=== PATIENT | male | born 1995 | race Caucasian/White ===

== ENCOUNTER 2018-02-23 15:26 | Emergency (ER) | payer OTHER, SELFPAY ==
[2018-02-23] MEDS ORDERED: MORPHINE 4 MG/ML SYR ONE (15:45)
[2018-02-23] MEDS ORDERED: ONDANSETRON 4 MG/2 ML VIAL ONE (15:45)
[2018-02-23] MEDS ORDERED: NA CHLORIDE 0.9% 1,000 ML ONE ×2 (15:57→17:16)
[2018-02-23] MEDS ORDERED: TETANUS & DIPHTHERIA TOX,ADULT 0.5 ML VIAL ONE ×2 (15:57→15:58)
[2018-02-23] MEDS ORDERED: HYDROCODONE/APAP 10/325 TAB ONE (16:10)
[2018-02-23] MEDS ORDERED: CEFAZOLIN/SWI 1gm 1 GM/10 ML SYR IVP ONE (16:15)
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
== END 2018-02-23 18:15 | disposition home or self-care (01) ==
LOC: ER 15:26
DX: T23.292A Burn of second degree of multiple sites of left wrist and hand, initial encounter (principal); X03.0XXA Exposure to flames in controlled fire, not in building or structure, initial encounter; Y93.89 Activity, other specified; Y92.9 Unspecified place or not applicable; Z23 Encounter for immunization; F17.210 Nicotine dependence, cigarettes, uncomplicated
CPT/HCPCS: 90714; 96361; 96365; 96375; 99284; J0690; J2405; J7030

== ENCOUNTER 2021-12-20 15:21 | Emergency (ER) | payer SELFPAY ==
--- NOTE | 2021-12-20 15:52 | EDPHYS ---
Physician Documentation [facility] Name: Inder Duckworth Age: 26 yrs Sex: Male : 1995 Arrival Date: 12/20/2021 Time: 15:23 Bed Waiting Private MD: ED Physician Kortney Grimaldo HPI: 12/20 15:44 This 26 yrs old Male presents to ER via Ambulatory with complaints of Toothache. jmm 15:44 The patient presents with pain. Onset: The symptoms/episode began/occurred gradually. jmm Duration: The symptoms are continuous. Modifying factors: The symptoms are alleviated by nothing, the symptoms are aggravated by nothing. Associated signs and symptoms: Pertinent negatives: fever. It is unknown whether or not the patient has had similar symptoms in the past. Historical: - Allergies: 15:44 No Known Allergies; ap3 - Home Meds: 15:44 None [Active]; ap3 - PMHx: 15:44 None; ap3 - Immunization history:: Client reports having NOT received the Covid vaccine. - Social history:: Smoking status: Reported history of juuling and/or vaping. Patient uses street drugs, marijuana. ROS: 15:44 Constitutional: Negative for fever, chills, and weight loss. jmm 15:44 ENT: Positive for dental pain. 15:44 All other systems are negative. Exam: 15:44 Constitutional: This is a well developed, well nourished patient who is awake, alert, jmm and in no acute distress. Head/Face: atraumatic. Eyes: EOMI, no conjunctival erythema appreciated 15:44 Chest/axilla: Normal chest wall appearance and motion. Cardiovascular: Regular rate and rhythm. No edema appreciated Respiratory: Normal respirations, no respiratory distress appreciated Abdomen/GI: Non distended Back: Normal ROM Skin: General appearance color normal MS/ Extremity: Moves all extremities, no obvious deformities appreciated, no edema noted to the lower extremities Neuro: Awake and alert Psych: Behavior is normal, Mood is normal, Patient is cooperative and pleasant 15:44 ENT: Dental exam: dental caries, that is severe, diffusely, gum swelling, that is moderate, specifically in the lower right second bicuspid (#29), lower right first molar (#30) and lower right second molar (#31), pain, that is moderate, specifically in the lower right first molar (#30), lower right second molar (#31) and lower right third molar (#32). Vital Signs: 15:42 BP 122 / 66; Pulse 51; Resp 18; Temp 97.5; Pulse Ox 100% ; Weight 83.91 kg; Height 6 ap3 ft. 4 in. (193.04 cm); Pain 8/10; 15:42 Body Mass Index 22.52 (83.91 kg, 193.04 cm) ap3 MDM: 15:44 Patient medically screened. [facility] 15:48 Data reviewed: vital signs, nurses notes. Counseling: I had a detailed discussion with [facility] the patient and/or guardian regarding: the historical points, exam findings, and any diagnostic results supporting the discharge/admit diagnosis, the need for outpatient follow up, to return to the emergency department if symptoms worsen or persist or if there are any questions or concerns that arise at home. Administered Medications: 16:10 Drug: Ketorolac 30 mg Route: IM; Site: right deltoid; ap3 16:11 Follow up: Response: Medication administered at discharge. ap3 16:10 Drug: Amoxicillin 875 mg Route: PO; ap3 16:11 Follow up: Response: Medication administered at discharge. ap3 Disposition: 18:31 STAFF ATTESTATION STATEMENT I was immediately available on-site in the Emergency sd2 Department for consultation in the care of the patient. Kortney Grimaldo MD. Disposition Summary: 12/20/21 15:52 Discharge Ordered Location: Home [facility] Condition: Stable [facility] Diagnosis - Dental caries, unspecified [facility] Followup: [facility] - With: Iain Cadena DDS - When: 2 - 3 days - Reason: Recheck today's complaints, Continuance of care, Re-evaluation by your physician Discharge Instructions: - Discharge Summary Sheet [facility] - Dental Caries, Adult [facility] Forms: - Medication Reconciliation Form [facility] - Thank You Letter [facility] - Antibiotic Education [facility] - Prescription Opioid Use [facility] Prescriptions: - Amoxicillin 875 mg Oral Tablet - take 1 tablet by ORAL route every 12 hours for 10 days; 20 tablet; Refills: 0, [facility] Product Selection Permitted - Diclofenac Sodium 75 mg Oral Tablet Sustained Release - take 1 tablet by ORAL route 2 times per day; 30 tablet; Refills: 0, Product jmm Selection Permitted Signatures: Jefferson Reid PA PA jmm Prokisch, Amanda, GIL RN ap3 Kortney Grimaldo MD MD sd2
--- NOTE | 2021-12-20 15:52 | ER ---
Nurse's Notes [facility] Name: Inder Duckworth Age: 26 yrs Sex: Male : 1995 Arrival Date: 12/20/2021 Time: 15:23 Bed Waiting Private MD: Diagnosis: Dental caries, unspecified Presentation: 12/20 15:42 Chief complaint: Patient states: he has been having right lower tooth pain for approx ap3 one week. patient states the pain is is a 8/10 on the pain scale. Coronavirus screen: At this time, the client does not indicate any symptoms associated with coronavirus-19. Ebola Screen: No symptoms or risks identified at this time. Initial Sepsis Screen: Does the patient meet any 2 criteria? No. Patient's initial sepsis screen is negative. Does the patient have a suspected source of infection? No. Patient's initial sepsis screen is negative. Risk Assessment: Do you want to hurt yourself or someone else? Patient reports no desire to harm self or others. Onset of symptoms was December 13, 2021. 15:42 Method Of Arrival: Ambulatory ap3 15:42 Acuity: ЕКАТЕРИНА 4 ap3 Triage Assessment: 15:45 General: Appears uncomfortable, Behavior is calm, cooperative, appropriate for age. ap3 Pain: Complains of pain in lower right second molar and lower right third molar. EENT: Reports pain in right jaw. Neuro: Level of Consciousness is awake, alert, obeys commands, Oriented to person, place, time, situation, Speech is normal. Cardiovascular: Patient's skin is warm and dry. Respiratory: Airway is patent Respiratory effort is even, unlabored, Respiratory pattern is regular, symmetrical. Historical: - Allergies: 15:44 No Known Allergies; ap3 - Home Meds: 15:44 None [Active]; ap3 - PMHx: 15:44 None; ap3 - Immunization history:: Client reports having NOT received the Covid vaccine. - Social history:: Smoking status: Reported history of juuling and/or vaping. Patient uses street drugs, marijuana. Screenin:46 Abuse screen: Denies threats or abuse. Nutritional screening: No deficits noted. ap3 Tuberculosis screening: No symptoms or risk factors identified. 16:11 Fall Risk None identified. ap3 Vital Signs: 15:42 BP 122 / 66; Pulse 51; Resp 18; Temp 97.5; Pulse Ox 100% ; Weight 83.91 kg; Height 6 ap3 ft. 4 in. (193.04 cm); Pain 8/10; 15:42 Body Mass Index 22.52 (83.91 kg, 193.04 cm) ap3 ED Course: 15:23 Patient arrived in ED. mr 15:40 [facility] Reid [facility] macy 15:40 Kortney Grimaldo is Attending Physician. jmm 15:44 Triage completed. ap3 15:46 Arm band placed on left wrist. ap3 15:52 Iain Cadena DDS is Referral Physician. jmm 16:10 Patient has correct armband on for positive identification. ap3 16:10 No provider procedures requiring assistance completed. Patient did not have IV access ap3 during this emergency room visit. Administered Medications: 16:10 Drug: Ketorolac 30 mg Route: IM; Site: right deltoid; ap3 16:11 Follow up: Response: Medication administered at discharge. ap3 16:10 Drug: Amoxicillin 875 mg Route: PO; ap3 16:11 Follow up: Response: Medication administered at discharge. ap3 Medication: 16:11 VIS not applicable for this client. ap3 Outcome: 15:52 Discharge ordered by MD. [facility] 16:10 Discharged to home ambulatory. ap3 16:10 Condition: stable 16:10 Discharge instructions given to patient, family, Instructed on discharge instructions, follow up and referral plans. medication usage, Demonstrated understanding of instructions, follow-up care, medications, Prescriptions given X 2. 16:11 Patient left the ED. ap3 Signatures: Jefferson Reid PA PA jmm Rivera, Mary mr Smith Kim, RN RN ap3
[2021-12-20] MEDS ORDERED: KETOROLAC 30 MG/ML INJ ONE (16:14)
[2021-12-20] MEDS ORDERED: AMOX/K CLAV 875 MG TAB ONE (16:14)
[2021-12-20 16:18] VITALS: BP 122/66; TEMP 97.5; O2SAT 100
== END 2021-12-20 16:11 | disposition home or self-care (01) ==
LOC: ER 15:21
DX: K02.9 Dental caries, unspecified (principal)
CPT/HCPCS: 96372; 99283

== ENCOUNTER 2022-02-08 09:39 | Emergency (ER) | payer SELFPAY ==
--- NOTE | 2022-02-08 10:57 | ER ---
Nurse's Notes [facility] Name: Inder Duckworth Age: 26 yrs Sex: Male : 1995 Arrival Date: 02/08/2022 Time: 09:45 Bed Waiting Private MD: Diagnosis: SARS-associated coronavirus as the cause of diseases classified elsewhere Presentation: 02/08 10:03 Chief complaint: Patient states: woke up with a headache and I was hot and cold, I took iw a home COVID test and it was positive. Coronavirus screen: Client presents with at least one sign or symptom that may indicate coronavirus-19. Ebola Screen: Patient negative for fever greater than or equal to 101.5 degrees Fahrenheit, and additional compatible Ebola Virus Disease symptoms Patient denies exposure to infectious person. Patient denies travel to an Ebola-affected area in the 21 days before illness onset. No symptoms or risks identified at this time. Initial Sepsis Screen: Does the patient meet any 2 criteria? No. Patient's initial sepsis screen is negative. Does the patient have a suspected source of infection? No. Patient's initial sepsis screen is negative. Risk Assessment: Do you want to hurt yourself or someone else? Patient reports no desire to harm self or others. Onset of symptoms was February 08, 2022. 10:03 Method Of Arrival: Ambulatory iw 10:03 Acuity: ЕКАТЕРИНА 4 iw Triage Assessment: 11:11 Pain: Also complains of no other associated symptoms. iw Historical: - Allergies: 10:04 No Known Allergies; iw - Home Meds: 10:04 None [Active]; iw - PMHx: 10:04 None; iw - PSHx: 10:04 None; iw - Immunization history:: Client reports having NOT received the Covid vaccine. - Social history:: Smoking status: Reported history of juuling and/or vaping. Screenin:49 Abuse screen: Denies threats or abuse. Denies injuries from another. Nutritional iw screening: No deficits noted. Tuberculosis screening: No symptoms or risk factors identified. Fall Risk None identified. Assessment: 10:49 General: Appears in no apparent distress. Behavior is calm, cooperative. Pain: Denies iw pain. Neuro: Level of Consciousness is awake, alert, obeys commands, Oriented to person, place, time, situation. Vital Signs: 10:04 BP 124 / 68; Pulse 70; Resp 16; Temp 98.1; Pulse Ox 98% ; Weight 83.91 kg; Height 6 ft. iw 3 in. (190.50 cm); 10:04 Body Mass Index 23.12 (83.91 kg, 190.50 cm) iw ED Course: 09:45 Patient arrived in ED. rg4 09:47 Quyen Mcconnell FNP-C is [facility]. kb 09:47 Montana Hager MD is Attending Physician. kb 10:04 Triage completed. iw 10:05 Arm band placed on. iw 10:49 Sharlene Hankins, RN is Primary Nurse. iw 11:10 No provider procedures requiring assistance completed. Patient did not have IV access iw during this emergency room visit. 11:11 Patient has correct armband on for positive identification. iw Administered Medications: No medications were administered Medication: 11:11 VIS not applicable for this client. iw Outcome: 10:56 Discharge ordered by . kb 11:11 Discharged to home ambulatory, with family. iw 11:11 Condition: good 11:11 Discharge instructions given to patient, Instructed on discharge instructions, follow up and referral plans. medication usage, Demonstrated understanding of instructions, follow-up care, medications, Prescriptions given X 1. 11:11 Patient left the ED. iw Signatures: Quyen Mcconnell FNP-C FNP-Sharlene Arzate, RN RN Kellie Saeed rg4
--- NOTE | 2022-02-08 10:57 | EDPHYS ---
Physician Documentation [facility] Name: Inder Duckworth Age: 26 yrs Sex: Male : 1995 Arrival Date: 02/08/2022 Time: 09:45 Bed Waiting Private MD: ED Physician Montana Hager HPI: 02/08 15:22 This 26 yrs old Male presents to ER via Ambulatory with complaints of Covid+, Headache. kb 15:22 The patient or guardian reports headahce, chills. Onset: The symptoms/episode kb began/occurred this morning. Severity of symptoms: At their worst the symptoms were mild, in the emergency department the symptoms have improved. Modifying factors: The symptoms are alleviated by nothing, the symptoms are aggravated by nothing. Associated signs and symptoms: The patient has no apparent associated signs or symptoms. The patient has not experienced similar symptoms in the past. The patient has not recently seen a physician. Pt reports waking up with chills and headache. Took a home covid test and it was positive. States he feels fine now, but family member made him come to the ER. Family member states they brought him in to get paxlovid. Historical: - Allergies: 10:04 No Known Allergies; iw - Home Meds: 10:04 None [Active]; iw - PMHx: 10:04 None; iw - PSHx: 10:04 None; iw - Immunization history:: Client reports having NOT received the Covid vaccine. - Social history:: Smoking status: Reported history of juuling and/or vaping. ROS: 15:22 Respiratory: Negative for shortness of breath, cough, wheezing, and pleuritic chest kb pain. 15:22 Constitutional: Positive for chills. 15:22 Neuro: Positive for headache. 15:22 All other systems are negative. Exam: 15:22 Constitutional: This is a well developed, well nourished patient who is awake, alert, kb and in no acute distress. Head/Face: Normocephalic, atraumatic. ENT: Moist Mucous membranes Cardiovascular: Regular rate and rhythm with a normal S1 and S2. No gallops, murmurs, or rubs. No pulse deficits. Respiratory: Respirations even and unlabored. No increased work of breathing. Talking in full sentences Abdomen/GI: Soft, non-tender. No distention Skin: Warm, dry with normal turgor. Normal color. MS/ Extremity: Pulses equal, no cyanosis. Neurovascular intact. Full, normal range of motion. Neuro: Awake and alert, GCS 15, oriented to person, place, time, and situation. Moves all extremities. Normal gait. Psych: Awake, alert, with orientation to person, place and time. Behavior, mood, and affect are within normal limits. Vital Signs: 10:04 BP 124 / 68; Pulse 70; Resp 16; Temp 98.1; Pulse Ox 98% ; Weight 83.91 kg; Height 6 ft. iw 3 in. (190.50 cm); 10:04 Body Mass Index 23.12 (83.91 kg, 190.50 cm) iw MDM: 10:05 Patient medically screened. kb 15:21 Data reviewed: vital signs, nurses notes. Data interpreted: Pulse oximetry: on room air kb is 98 %. Interpretation: normal. Counseling: I had a detailed discussion with the patient and/or guardian regarding: the historical points, exam findings, and any diagnostic results supporting the discharge/admit diagnosis, lab results, the need for outpatient follow up, a family practitioner, to return to the emergency department if symptoms worsen or persist or if there are any questions or concerns that arise at home. 02/08 10:06 Order name: COVID-19 SARS RT PCR (Document "Date of Onset" if Symptomatic); Complete kb Time: 10:56 Administered Medications: No medications were administered Disposition Summary: 02/08/22 10:56 Discharge Ordered Location: Home kb Condition: Stable kb Diagnosis - SARS-associated coronavirus as the cause of diseases classified elsewhere kb Followup: kb - With: Emergency Department - When: As needed - Reason: Worsening of condition Followup: kb - With: Private Physician - When: 2 - 3 days - Reason: Recheck today's complaints, Continuance of care, Re-evaluation by your physician Discharge Instructions: - Discharge Summary Sheet kb - COVID-19 kb - Viral Illness, Adult kb Forms: - Medication Reconciliation Form kb - Thank You Letter kb - Antibiotic Education kb - Prescription Opioid Use kb Prescriptions: - Paxlovid (EUA) 150 mg x 2- 100 mg Oral tablet - take 3 tablet by ORAL route 2 times per day for 5 days per package directions; kb 30 tablet; Refills: 0, Product Selection Permitted Signatures: Dispatcher [employer] Quyen Villela, PRINT LINE INSPECTOR-C PRINT LINE INSPECTOR-Sharlene Arzate, RN RN iw
[2022-02-08 11:19] VITALS: BP 124/68; TEMP 98.1; O2SAT 98
== END 2022-02-08 11:11 | disposition home or self-care (01) ==
LOC: ER 09:39
DX: U07.1 COVID-19 (principal)
CPT/HCPCS: 99282; U0003

== ENCOUNTER 2023-03-21 16:26 | Emergency (ER) | payer SELFPAY ==
[2023-03-21] MEDS ORDERED: IBUPROFEN 200 MG TAB PO ONE (17:06)
--- NOTE | 2023-03-21 17:39 | RAD REPORT ---
EXAM DESCRIPTION: RAD - Foot Left 3 View - 03/21/2023 5:16 pm CLINICAL HISTORY: Left Foot pain FINDINGS: No fracture or dislocation is seen.
--- NOTE | 2023-03-21 17:52 | EDPHYS ---
Physician Documentation [facility] [place], [place] Name: Inder Duckworth Age: 27 yrs Sex: Male : 1995 Arrival Date: 03/21/2023 Time: 16:26 Bed 20 Private MD: ED Physician Leon Koo HPI: 03/21 16:40 This 27 yrs old Male presents to ER via Wheelchair with complaints of Toe Injury - left.jh7 16:40 Onset: The symptoms/episode began/occurred acutely. Patient dropped a 20 pound jh7 electrical panel on the left foot bruising great toe. Reports that he cannot move his toe. No past medical history or allergies.. Historical: - Allergies: 16:46 Aspirin; cm10 - Home Meds: 16:46 None [Active]; cm10 - PMHx: 16:46 None; cm10 - PSHx: 16:46 None; cm10 - Immunization history:: Adult Immunizations unknown. - Social history:: Smoking status: Reported history of juuling and/or vaping. ROS: 16:40 Constitutional: Negative for fever, chills, and weight loss, Eyes: Negative for injury, jh7 pain, redness, and discharge, Cardiovascular: Negative for chest pain, palpitations, and edema, Respiratory: Negative for shortness of breath, cough, wheezing, and pleuritic chest pain, Abdomen/GI: Negative for abdominal pain, nausea, vomiting, diarrhea, and constipation, Skin: Negative for injury, rash, and discoloration, Neuro: Negative for headache, weakness, numbness, tingling, and seizure, 16:40 MS/extremity: Positive for ecchymosis, of the Left First distal metatarsal, 16:40 All other systems are negative, Exam: 16:40 Constitutional: This is a well developed, well nourished patient who is awake, alert, jh7 and in no acute distress. Head/Face: Normocephalic, atraumatic. Neck: Trachea midline, no thyromegaly or masses palpated, and no cervical lymphadenopathy. Supple, full range of motion without nuchal rigidity, or vertebral point tenderness. No Meningismus. Cardiovascular: Regular rate and rhythm with a normal S1 and S2. No gallops, murmurs, or rubs. Normal PMI, no JVD. No pulse deficits. Respiratory: Lungs have equal breath sounds bilaterally, clear to auscultation and percussion. No rales, rhonchi or wheezes noted. No increased work of breathing, no retractions or nasal flaring. Skin: Warm, dry with normal turgor. Normal color with no rashes, no lesions, and no evidence of cellulitis. Neuro: Awake and alert, GCS 15, oriented to person, place, time, and situation. Motor strength 5/5 in all extremities. Sensory grossly intact. Normal gait. 16:40 Musculoskeletal/extremity: Extremities: noted in the Left first distal metatarsal: ecchymosis, ROM: limited active range of motion, limited active range of motion due to pain, in the left first toe, Circulation is intact in all extremities. Sensation intact. Vital Signs: 16:44 BP 126 / 66; Pulse 61; Resp 18; Temp 98.7(TE); Pulse Ox 100% ; Weight 88.45 kg (R); cm10 Height 6 ft. 2 in. (R); Pain 6/10; 17:28 BP 119 / 82; Pulse 62; Resp 17 S; Pulse Ox 100% on R/A; kc6 16:44 Body Mass Index 25.04 (88.45 kg, 187.96 cm) cm10 16:44 Pain Scale: Adult cm10 MDM: 16:30 Patient medically screened. [facility] 17:55 Differential diagnosis: contusion, fracture, sprain. Data reviewed: vital signs, nurses [facility] notes, radiologic studies, plain films. I considered the following discharge prescriptions or medication management in the emergency department Medications were administered in the Emergency Department. See MAR. Independent interpretation of the following test(s) in the Emergency Department X-Ray: My interpretation is no acute fractures. Counseling: I had a detailed discussion with the patient and/or guardian regarding the historical points, exam findings, and any diagnostic results supporting the discharge/admit diagnosis, to return to the emergency department if symptoms worsen or persist or if there are any questions or concerns that arise at home. Response to treatment: the patient's symptoms have mildly improved after treatment. 03/21 16:34 Order name: XRAY Foot LEFT 3 View; Complete Time: 17:42 [facility] 03/21 17:43 Order name: Ortho shoe; Complete Time: 17:56 [facility] 03/21 17:50 Order name: Crutches; Complete Time: 18:05 [facility] Administered Medications: 17:01 Drug: Ibuprofen PO 600 mg PO once Route: PO; kc6 17:28 Follow up: Response: No adverse reaction kc6 Disposition Summary: 03/21/23 17:51 Discharge Ordered Notes: Location: Home [facility] Problem: new [facility] Symptoms: are unchanged [facility] Condition: Stable [facility] Diagnosis - Contusion of left foot [facility] Followup: [facility] - With: Private Physician - When: 2 - 3 days - Reason: Recheck today's complaints Discharge Instructions: - Discharge Summary Sheet [facility] - Foot Contusion [facility] - Crutch Use, Adult [facility] Forms: - Medication Reconciliation Form [facility] - Thank You Letter [facility] - Patient Portal Instructions [facility] - Leadership Thank You Letter [facility] Addendum: 03/22/2023 20:19 Co-signature as Attending Physician, Leon Koo MD. e c2 Signatures: Dispatcher [employer] Yoli Schmidt, IRONER OR PRESSER IRONER OR PRESSER 7 Taylor Mary RN RN kc6 Alesha Smith RN RN cm10 Leon Koo MD MD ec2
--- NOTE | 2023-03-21 17:52 | ER ---
Nurse's Notes [facility] Name: Inder Duckworth Age: 27 yrs Sex: Male : 1995 Arrival Date: 03/21/2023 Time: 16:26 Bed 20 Private MD: Diagnosis: Contusion of left foot Presentation: 03/21 16:44 Chief complaint: Patient states: he dropped an electrical panel on his left foot. Pt cm10 has pain to left great toe, bruising noted. Coronavirus screen: Vaccine status: Patient reports being unvaccinated. Client denies travel out of the [place] in the last 14 days. Ebola Screen: Patient denies travel to an Ebola-affected area in the 21 days before illness onset. No symptoms or risks identified at this time. Initial Sepsis Screen: Does the patient meet any 2 criteria? No. Patient's initial sepsis screen is negative. Does the patient have a suspected source of infection? No. Patient's initial sepsis screen is negative. Risk Assessment: Do you want to hurt yourself or someone else? Patient reports no desire to harm self or others. Onset of symptoms was March 21, 2023. 16:44 Method Of Arrival: Wheelchair cm10 16:44 Acuity: ЕКАТЕРИНА 4 cm10 Triage Assessment: 16:46 General: Appears in no apparent distress. comfortable, Behavior is calm, cooperative. cm10 Pain: Complains of pain in left first toe. Neuro: No deficits noted. Level of Consciousness is awake, alert, obeys commands, Oriented to person, place, time, situation. Cardiovascular: No deficits noted. Patient's skin is warm and dry. Respiratory: No deficits noted. Airway is patent Respiratory effort is even, unlabored, Respiratory pattern is regular, symmetrical. Derm: No deficits noted. No signs and/or symptoms reported regarding the dermatologic system. Skin is intact, Skin is pink, warm \T\ dry. Historical: - Allergies: 16:46 Aspirin; cm10 - Home Meds: 16:46 None [Active]; cm10 - PMHx: 16:46 None; cm10 - PSHx: 16:46 None; cm10 - Immunization history:: Adult Immunizations unknown. - Social history:: Smoking status: Reported history of juuling and/or vaping. Screenin:27 [facility] ED Fall Risk Assessment (Adult) History of falling in the last 3 months, kc6 including since admission No falls in past 3 months (0 pts) Confusion or Disorientation No (0 pts) Intoxicated or Sedated No (0 pts) Impaired Gait No (0 pts) Mobility Assist Device Used No (0 pt) Altered Elimination No (0 pt) Score/Fall Risk Level 0 - 2 = Low Risk. Abuse screen: Denies threats or abuse. Denies injuries from another. Nutritional screening: No deficits noted. Tuberculosis screening: No symptoms or risk factors identified. Assessment: 16:46 Reassessment: please see triage assessment. kc6 17:25 Reassessment: Patient appears in no apparent distress at this time. No changes from kc6 previously documented assessment. Patient and/or family updated on plan of care and expected duration. Pain level reassessed. Patient is alert, oriented x 3, equal unlabored respirations, skin warm/dry/pink. Vital Signs: 16:44 BP 126 / 66; Pulse 61; Resp 18; Temp 98.7(TE); Pulse Ox 100% ; Weight 88.45 kg (R); cm10 Height 6 ft. 2 in. (R); Pain 6/10; 17:28 BP 119 / 82; Pulse 62; Resp 17 S; Pulse Ox 100% on R/A; kc6 16:44 Body Mass Index 25.04 (88.45 kg, 187.96 cm) cm10 16:44 Pain Scale: Adult cm10 ED Course: 16:29 Patient arrived in ED. im 16:29 [facility] Irby [facility] 16:29 Leon Koo MD is Attending Physician. [facility] 16:46 Triage completed. cm10 16:47 Arm band placed on Patient placed in an exam room, on a stretcher. cm10 16:51 Taylor Mary, GIL is Primary Nurse. kc6 17:17 XRAY Foot LEFT 3 View In Process Unspecified. EDMS 17:27 Patient has correct armband on for positive identification. Bed in low position. Call kc6 light in reach. Side rails up X 1. Adult w/ patient. Client placed on continuous cardiac and pulse oximetry monitoring. NIBP monitoring applied. 18:05 No provider procedures requiring assistance completed. Patient did not have IV access kc6 during this emergency room visit. Administered Medications: 17:01 Drug: Ibuprofen PO 600 mg PO once Route: PO; kc6 17:28 Follow up: Response: No adverse reaction kc6 Medication: 18:06 VIS not applicable for this client. kc6 Outcome: 17:51 Discharge ordered by . emmie 18:05 Discharged to home with crutches, with family, kc6 18:05 Condition: improved 18:05 Discharge instructions given to patient, Instructed on discharge instructions, follow up and referral plans. crutch walking, Demonstrated understanding of instructions, follow-up care, crutch walking, 18:07 Patient left the ED. kc6 Signatures: Dispatcher [employer] EDMS Yoli Iryb, CLIENT RELATIONS REPRESENTATIVE CLIENT RELATIONS REPRESENTATIVE Taylor Beach RN RN kc6 Katherine Can Clarissa RN RN cm10
== END 2023-03-21 18:07 | disposition home or self-care (01) ==
LOC: ER 16:26
DX: S90.32XA Contusion of left foot, initial encounter (principal)
CPT/HCPCS: 99284